=== PATIENT | female | born 1990 | race Caucasian/White ===

== ENCOUNTER 2018-02-04 09:16 | Emergency (ER) | payer SELFPAY ==
[2018-02-04] MEDS ORDERED: DEXAMETHASONE 10 MG/ML VIAL ONE (10:32)
[2018-02-04] MEDS ORDERED: MEPERIDINE HCL 25 MG/0.5 ML ONE (10:32)
[2018-02-04] MEDS ORDERED: KETOROLAC 30 MG/ML INJ ONE (10:32)
--- NOTE | 2018-02-04 11:20 | RAD REPORT ---
EXAM DESCRIPTION: RAD - Lumbar Spine 3 Views - 02/04/2018 11:11 am CLINICAL HISTORY: Back pain and bilateral lower extremity radiculopathy COMPARISON: None. FINDINGS: A three-view lumbar spine examination was performed. Lumbar bodies are normal in height an d normal in AP alignment. There is a very minimal left convex curvature to the lumbar spine. SI joint s are normal. No fracture or acute bony process seen. No disc space narrowing. No pars defects identi fied. IMPRESSION: Minimal left convex curvature of the lumbar spine. No other significant findings. Concerns for disc herniation, central canal abnormality or occult bone process can be addressed with MR imaging.
--- NOTE | 2018-02-04 11:25 | ER ---
Nurse's Notes [facility] Name: Estelle Luque Age: 28 yrs Sex: Female : 1990 Arrival Date: 02/04/2018 Time: 09:18 Bed 9 Private MD: Diagnosis: Low back pain;Strain of muscle, fascia and tendon of lower back Presentation: 02/04 09:40 Presenting complaint: Patient states: hx of back pain, yesterday, i noticed my back is hj really hurting; denies trauma to the area; denies hx of kidney stones; reports numbness and tingling on legs and toes; pain is 10/10;. Transition of care: patient was not received from another setting of care. Onset of symptoms was February 04, 2018. Risk Assessment: Do you want to hurt yourself or someone else? Patient reports no desire to harm self or others. Initial Sepsis Screen: Does the patient meet any 2 criteria? No. Patient's initial sepsis screen is negative. Does the patient have a suspected source of infection? No. Patient's initial sepsis screen is negative. Care prior to arrival: None. 09:40 Method Of Arrival: Ambulatory 09:40 Acuity: SANDI 4 hj Triage Assessment: :44 General: Appears in no apparent distress. uncomfortable, Behavior is calm, cooperative, hj appropriate for age. Pain: Complains of pain in lumbar area, left low back and right low back. Musculoskeletal: Range of motion: intact in all extremities. 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 - Social history:: Smoking status: Patient uses tobacco products, Patient/guardian denies using alcohol. - Ebola Screening: : Patient negative for fever greater than or equal to 101.5 degrees Fahrenheit, and additional compatible Ebola Virus Disease symptoms Patient denies exposure to infectious person Patient denies travel to an Ebola-affected area in the 21 days before illness onset. - Family history:: not pertinent. - Hospitalizations: : No recent hospitalization is reported. Screenin:44 Abuse screen: Denies threats or abuse. Denies injuries from another. Nutritional hj screening: No deficits noted. Tuberculosis screening: No symptoms or risk factors identified. Fall Risk None identified. Assessment: 09:54 General: Appears uncomfortable, Behavior is calm, cooperative. Pain: Complains of pain iw in right low back and left low back and lumbar area Pain radiates to right leg Pain currently is 10 out of 10 on a pain scale. Neuro: Level of Consciousness is awake, alert, obeys commands, Oriented to person, place, time, situation. Cardiovascular: Patient's skin is warm and dry. Respiratory: Respiratory effort is even, unlabored, Respiratory pattern is regular. Derm: Skin is intact, is healthy with good turgor. Musculoskeletal: Range of motion: intact in all extremities, Reports pain in right low back and left low back and lumbar area. Vital Signs: 09:44 BP 90 / 70; Pulse 86; Resp 18; Temp 99.1(TE); Pulse Ox 100% on R/A; Weight 86.18 kg; hj Height 5 ft. 4 in. (162.56 cm); Pain 10/10; 10:04 BP 125 / 78; Pulse 78; Resp 16; Temp 98.2(O); Pulse Ox 98% on R/A; Pain 10/10; iw 09:44 Body Mass Index 32.61 (86.18 kg, 162.56 cm) ED Course: 09:18 Patient arrived in ED. as 09:41 Triage completed. hj 09:44 Arm band placed on left wrist. hj 09:46 Patient has correct armband on for positive identification. Bed in low position. Call light in reach. Side rails up X 1. 09:54 Robert Rocha MD is Attending Physician. rn 09:54 Jessi Freeman, KISHOR is Primary Nurse. iw 11:10 X-ray completed. Portable x-ray completed in exam room. Patient tolerated procedure ls3 well. 11:12 XRAY Lumbar Spine (3 Views) In Process Unspecified. EDMS 11:39 No provider procedures requiring assistance completed. Patient did not have IV access iw during this emergency room visit. Administered Medications: 10:34 Drug: TORadol 30 mg Route: IVP; Site: right antecubital; iw 11:00 Follow up: Response: No adverse reaction; Pain is decreased iw 10:35 Drug: Decadron - Dexamethasone 10 mg Route: IVP; Site: right antecubital; iw 11:05 Follow up: Response: No adverse reaction; Pain is decreased iw 10:40 Drug: Demerol 25 mg Route: IVP; Site: right antecubital; iw 11:10 Follow up: Response: No adverse reaction; Pain is decreased iw Outcome: 11:24 Discharge ordered by . rn 11:39 Discharged to home via wheelchair, with family. iw 11:39 Condition: good 11:39 Discharge instructions given to patient, Instructed on discharge instructions, follow up and referral plans. medication usage, Demonstrated understanding of instructions, follow-up care, medications, Prescriptions given X 3. 11:40 Patient left the ED. iw Signatures: Dispatcher [employer] EDMS Destiny Ochoa Irene, RN RN Robert Rocha MD MD rn Joaquin, Henry, RN RN Isi Edwards ls3 Corrections: (The following items were deleted from the chart) 09:48 09:44 Pulse 86bpm; Resp 18bpm; Pulse Ox 100% RA; Temp 99.1F Temporal; 86.18 kg; Height hj 5 ft. 4 in.; BMI: 32.6; Pain 10/10; hj 10:05 10:04 BP 125 / 78; Pulse 78bpm; Resp 16bpm; Temp 98.2F Oral; iw iw
--- NOTE | 2018-02-04 11:25 | EDPHYS ---
Physician Documentation [facility] Name: Estelle Luque Age: 28 yrs Sex: Female : 1990 Arrival Date: 02/04/2018 Time: 09:18 Bed 9 Private MD: ED Physician Robert Rocha HPI: 02/04 10:04 This 28 yrs old Female presents to ER via Ambulatory with complaints of Back rn Pain. 10:04 The patient presents with pain that is chronic. The symptoms are located in the low rn back. Onset: The symptoms/episode began/occurred 1 week(s) ago. The pain radiates to the right leg and left leg. Modifying factors: The patient symptoms are alleviated by remaining still, the patient symptoms are aggravated by any movement. Severity of symptoms: At their worst the symptoms were moderate, in the emergency department the symptoms are unchanged. The patient has experienced similar episodes in the past, chronically. Reports low back pain, began again about 1 week ago, no trauma, reports lifted nephew, slowly worsening back pain, radiates down legs, no weakness, no bowel/bladder problems. Reports chronic back pain for years without etiology, denies drug use or trauma. . 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 - Social history:: Smoking status: Patient uses tobacco products, Patient/guardian denies using alcohol. - Ebola Screening: : Patient negative for fever greater than or equal to 101.5 degrees Fahrenheit, and additional compatible Ebola Virus Disease symptoms Patient denies exposure to infectious person Patient denies travel to an Ebola-affected area in the 21 days before illness onset. - Family history:: not pertinent. - Hospitalizations: : No recent hospitalization is reported. ROS: 10:04 Constitutional: Negative for fever, chills, and weight loss, Eyes: Negative for injury, rn pain, redness, and discharge, Neck: Negative for injury, pain, and swelling, Cardiovascular: Negative for chest pain, palpitations, and edema, Respiratory: Negative for shortness of breath, cough, wheezing, and pleuritic chest pain, Abdomen/GI: Negative for abdominal pain, nausea, vomiting, diarrhea, and constipation, Back: + low back pain : Negative for injury, bleeding, discharge, and swelling, MS/Extremity: Negative for injury and deformity, Skin: Negative for injury, rash, and discoloration, Neuro: Negative for headache, weakness, numbness, tingling, and seizure. Exam: 10:04 Constitutional: Overweight female, sitting in bed, using cell phone. Head/Face: rn Normocephalic, atraumatic. Eyes: Pupils equal round and reactive to light, extra-ocular motions intact. Lids and lashes normal. Conjunctiva and sclera are non-icteric and not injected. Cornea within normal limits. Periorbital areas with no swelling, redness, or edema. Abdomen/GI: soft, non-tender Back: No spinal tenderness. No costovertebral tenderness. Painful ROM, but able to sit/lay/rotate on own. Skin: Warm, dry, no evidence of cellulitis. MS/ Extremity: Pulses equal, no cyanosis. Neurovascular intact. Equal circumference. Neuro: Awake and alert, GCS 15, oriented to person, place, time, and situation. Motor strength 5/5 in all extremities. Sensory grossly intact. Cerebellar exam normal. Vital Signs: 09:44 BP 90 / 70; Pulse 86; Resp 18; Temp 99.1(TE); Pulse Ox 100% on R/A; Weight 86.18 kg; hj Height 5 ft. 4 in. (162.56 cm); Pain 10/10; 10:04 BP 125 / 78; Pulse 78; Resp 16; Temp 98.2(O); Pulse Ox 98% on R/A; Pain 10/10; iw 09:44 Body Mass Index 32.61 (86.18 kg, 162.56 cm) hj MDM: 09:54 Patient medically screened. rn 11:21 Differential diagnosis: arthritis, chronic back pain, Osteoarthritis sprain, UTI, rn strain. Data reviewed: vital signs, nurses notes, lab test result(s), radiologic studies, plain films, and as a result, I will discharge patient. Counseling: I had a detailed discussion with the patient and/or guardian regarding: the historical points, exam findings, and any diagnostic results supporting the discharge/admit diagnosis, lab results, radiology results, the need for outpatient follow up, to return to the emergency department if symptoms worsen or persist or if there are any questions or concerns that arise at home. Response to treatment: the patient's symptoms have mildly improved after treatment, and as a result, I will discharge patient. Special discussion: I discussed with the patient/guardian in detail that at this point there is no indication for admission to the hospital. It is understood, however, that if the symptoms persist or worsen the patient needs to return immediately for re-evaluation. ED course: Pt improved, xray without obvious acute findings, 1+ leukocytes but no urinary symptoms, repeat temp is normal, initial one taken bundled up.. 02/04 10:31 Order name: Urine Dipstick--Ancillary (enter results) eb 02/04 10:31 Order name: Urine --Ancillary (enter results) eb 02/04 10:03 Order name: XRAY Lumbar Spine (3 Views); Complete Time: 11:21 rn 02/04 10:03 Order name: Urine Dipstick-Ancillary (obtain specimen); Complete Time: 10:39 rn 02/04 10:03 Order name: Urine Test (obtain specimen); Complete Time: 10:39 rn 02/04 10:03 Order name: IV Start; Complete Time: 10:39 rn Administered Medications: 10:34 Drug: TORadol 30 mg Route: IVP; Site: right antecubital; iw 11:00 Follow up: Response: No adverse reaction; Pain is decreased iw 10:35 Drug: Decadron - Dexamethasone 10 mg Route: IVP; Site: right antecubital; iw 11:05 Follow up: Response: No adverse reaction; Pain is decreased iw 10:40 Drug: Demerol 25 mg Route: IVP; Site: right antecubital; iw 11:10 Follow up: Response: No adverse reaction; Pain is decreased iw Disposition: 02/04/18 11:24 Discharged to Home. Impression: Low back pain, Strain of muscle, fascia and tendon of lower back. - Condition is Stable. - Discharge Instructions: Back Pain, Adult, Muscle Strain. - Prescriptions for Tylenol- Codeine #3 300-30 mg Oral Tablet - take 1 tablet by ORAL route every 6 hours As needed; 15 tablet. Cyclobenzaprine 10 mg Oral Tablet - take 1 tablet by ORAL route every 8 hours As needed; 15 tablet. Medrol ([place]) 4 mg Oral Tablets, Dose Pack - take 1 tablet by ORAL route as directed - follow package instructions; 1 packet. - Work release form, Medication Reconciliation Form, Thank You Letter, Antibiotic Education, Prescription Opioid Use form. - Follow up: Private Physician; When: As needed; Reason: Recheck today's complaints, Re-evaluation by your physician. - Problem is new. - Symptoms have improved. Signatures: Dispatcher [employer] EDMS Jessi Freeman RN RN iw Nieto, Roman, MD MD rn Joaquin, Henry, RN RN Corrections: (The following items were deleted from the chart) 11:40 11:24 02/04/2018 11:24 Discharged to Home. Impression: Low back pain; Strain of muscle, iw fascia and tendon of lower back. Condition is Stable. Forms are Medication Reconciliation Form, Thank You Letter, Antibiotic Education, Prescription Opioid Use. Follow up: Private Physician; When: As needed; Reason: Recheck today's complaints, Re-evaluation by your physician. Problem is new. Symptoms have improved. rn
[2018-02-04 12:03] VITALS: BP 125/78; TEMP 98.2; O2SAT 98
[2018-02-04 17:14] LABS: Urine Blood NEGATIVE (NEG); Urine Glucose NEGATIVE (NEG); Urine Protein NEGATIVE (NEG); Urine Specific Gravity 1.015 (1.005-1.030)
== END 2018-02-04 11:40 | disposition home or self-care (01) ==
LOC: ER 09:16
DX: S39.012A Strain of muscle, fascia and tendon of lower back, initial encounter (principal); F41.9 Anxiety disorder, unspecified; F32.9 Major depressive disorder, single episode, unspecified; Z72.0 Tobacco use; Z88.8 Allergy status to other drugs, medicaments and biological substances
CPT/HCPCS: 72100; 81003; 81025; 96374; 96375; 99283; J1100; J2175

== ENCOUNTER 2018-04-19 08:30 | Emergency (ER) | payer SELFPAY ==
--- NOTE | 2018-04-19 09:21 | ER ---
Nurse's Notes [facility] Name: Estelle Luque Age: 28 yrs Sex: Female : 1990 Arrival Date: 04/19/2018 Time: 08:32 Bed 16 Private MD: Diagnosis: Influenza due to identified novel influenza A virus Presentation: 04/19 08:43 Presenting complaint: Patient states: headache, body aches, sore throat and fever (TMAX ss 102.0). Transition of care: patient was not received from another setting of care. Onset of symptoms is unknown. Risk Assessment: Do you want to hurt yourself or someone else? Patient reports no desire to harm self or others. Initial Sepsis Screen: Does the patient meet any 2 criteria? No. Patient's initial sepsis screen is negative. Does the patient have a suspected source of infection? No. Patient's initial sepsis screen is negative. Care prior to arrival: None. 08:43 Method Of Arrival: Ambulatory ss 08:43 Acuity: SANDI 4 ss Historical: - Allergies: 08:44 Ceclor; ss - Home Meds: 08:44 hydroxyzine HCl 25 mg Oral tab 1 tab 4 times per day [Active]; duloxetine 40 mg Oral ss cpDR 1 cap once daily [Active]; - PMHx: 08:44 Anxiety; Depression; ss - PSHx: 08:44 Appendectomy; ss - Immunization history:: Adult Immunizations up to date. - Social history:: Smoking status: Patient uses tobacco products, smokes one-half pack cigarettes per day. - Ebola Screening: : Patient denies exposure to infectious person Patient denies travel to an Ebola-affected area in the 21 days before illness onset. Screenin:55 Abuse screen: Denies threats or abuse. Nutritional screening: No deficits noted. em Tuberculosis screening: No symptoms or risk factors identified. Fall Risk None identified. Assessment: 08:55 General: Appears in no apparent distress. uncomfortable, Behavior is calm, cooperative, em Reports fever for 1-2 days. Pain: Complains of pain in throat Pain currently is 4 out of 10 on a pain scale. Pain began 2-3 days ago. Aggravated by eating, drinking. Neuro: Level of Consciousness is awake, alert, obeys commands, Oriented to person, place, time, situation. Cardiovascular: Patient's skin is warm and dry. Respiratory: Airway is patent Respiratory effort is even, unlabored, Respiratory pattern is regular, symmetrical, Breath sounds are clear bilaterally. GI: Patient currently denies nausea, vomiting. EENT: Oral mucosa is moist. Throat is reddened bilaterally. Derm: Skin is intact, is healthy with good turgor, Skin is pink, warm \T\ dry. Musculoskeletal: Range of motion: intact in all extremities. 09:32 Reassessment: Patient appears in no apparent distress at this time. No changes from sv previously documented assessment. Patient and/or family updated on plan of care and expected duration. Pain level reassessed. Patient is alert, oriented x 3, equal unlabored respirations, skin warm/dry/pink. I agree with the above assessment. Vital Signs: 08:44 BP 127 / 84; Pulse 95; Resp 16; Pulse Ox 98% on R/A; Weight 90.72 kg; Pain 4/10; ss 09:04 Temp 99.7(O); ss ED Course: 08:32 Patient arrived in ED. as 08:36 Jermain Villar MD is Attending Physician. kdr 08:43 Triage completed. ss 08:44 Arm band placed on right wrist. ss 08:55 Patient has correct armband on for positive identification. Placed in gown. Bed in low em position. Call light in reach. Side rails up X2. Pulse ox on. NIBP on. 09:12 Strep Sent. sv 09:12 Flu Sent. sv 09:13 Lorenzo Rudolph LVN is Primary Nurse. em 09:32 No provider procedures requiring assistance completed. Patient did not have IV access sv during this emergency room visit. Administered Medications: No medications were administered Outcome: 09:21 Discharge ordered by . kdr 09:32 Discharged to home ambulatory. sv 09:32 Condition: stable 09:32 Discharge instructions given to patient, Instructed on discharge instructions, follow up and referral plans. medication usage, increase oral fluids Demonstrated understanding of instructions, follow-up care, medications, Prescriptions given X 3. 09:33 Patient left the ED. sv Signatures: Ana Maldonado, RN RN Jermain Villar MD MD kdr Munoz, Edgar, LVN LVN em Destiny Ochoa Shelby, RN RN
--- NOTE | 2018-04-19 09:21 | EDPHYS ---
Physician Documentation [facility] Name: Estelle Luque Age: 28 yrs Sex: Female : 1990 Arrival Date: 04/19/2018 Time: 08:32 Bed 16 Private MD: ED Physician Jermain Villar HPI: 04/19 09:22 This 28 yrs old Female presents to ER via Ambulatory with complaints of Flu kdr Symptoms. 09:22 Has been feeling poorly for the last three to five days. Severity of symptoms: At their kdr worst the symptoms were mild moderate just prior to arrival, in the emergency department the symptoms are unchanged. The patient has not experienced similar symptoms in the past. The patient has not recently seen a physician. Historical: - Allergies: 08:44 Ceclor; ss - Home Meds: 08:44 hydroxyzine HCl 25 mg Oral tab 1 tab 4 times per day [Active]; duloxetine 40 mg Oral ss cpDR 1 cap once daily [Active]; - PMHx: 08:44 Anxiety; Depression; ss - PSHx: 08:44 Appendectomy; ss - Immunization history:: Adult Immunizations up to date. - Social history:: Smoking status: Patient uses tobacco products, smokes one-half pack cigarettes per day. - Ebola Screening: : Patient denies exposure to infectious person Patient denies travel to an Ebola-affected area in the 21 days before illness onset. ROS: 09:22 Constitutional: Negative for fever, chills, and weight loss. kdr Vital Signs: 08:44 BP 127 / 84; Pulse 95; Resp 16; Pulse Ox 98% on R/A; Weight 90.72 kg; Pain 4/10; ss 09:04 Temp 99.7(O); ss MDM: 09:21 Patient medically screened. kdr 04/19 08:35 Order name: Flu 04/19 08:39 Order name: Strep ms 04/19 09:04 Order name: Influenza Screen (A ; Complete Time: 09:19 EDMS 04/19 09:04 Order name: Group A Streptococcus Rapid Sc; Complete Time: 09:19 EDMS Administered Medications: No medications were administered Disposition: 04/19/18 09:21 Discharged to Home. Impression: Influenza due to identified novel influenza A virus. - Condition is Stable. - Discharge Instructions: Influenza, Adult, [id number]. - Prescriptions for Tamiflu 75 mg Oral Capsule - take 1 tablet by ORAL route every 12 hours for 5 days; 10 tablet. Mucinex DM 30- 600 mg Oral tablet extended release 12 hr - take 1 tablet by ORAL route every 12 hours as needed; 30 tablet. Tessalon Perles 100 mg Oral Capsule - take 1 capsule by ORAL route every 8 hours As needed; 15 capsule. - Work release form, Medication Reconciliation Form, Thank You Letter, Antibiotic Education, Prescription Opioid Use form. - Follow up: Private Physician; When: 2 - 3 days; Reason: If symptoms return, Further diagnostic work-up, Recheck today's complaints, Continuance of care, Re-evaluation by your physician. - Problem is new. - Symptoms are unchanged. Signatures: Dispatcher [employer] Ana Madrid RN RN Jermain Perkins MD MD [facility] Estelle Goins RN RN ss Corrections: (The following items were deleted from the chart) 09:33 09:21 04/19/2018 09:21 Discharged to Home. Impression: Influenza due to identified sv novel influenza A virus. Condition is Stable. Forms are Medication Reconciliation Form, Thank You Letter, Antibiotic Education, Prescription Opioid Use. Follow up: Private Physician; When: 2 - 3 days; Reason: If symptoms return, Further diagnostic work-up, Recheck today's complaints, Continuance of care, Re-evaluation by your physician. Problem is new. Symptoms are unchanged. kdr
[2018-04-19 09:55] VITALS: BP 127/84; O2SAT 98
[2018-04-19 09:56] VITALS: TEMP 99.7
== END 2018-04-19 09:33 | disposition home or self-care (01) ==
LOC: ER 08:30
DX: J10.1 Influenza due to other identified influenza virus with other respiratory manifestations (principal); F32.9 Major depressive disorder, single episode, unspecified; F41.9 Anxiety disorder, unspecified; F17.210 Nicotine dependence, cigarettes, uncomplicated; Z88.8 Allergy status to other drugs, medicaments and biological substances
CPT/HCPCS: 87070; 87081; 87804; 99283

== ENCOUNTER 2020-01-10 15:51 | Emergency (ER) | payer OTHER, SELFPAY ==
--- OUTSIDE RECORDS SUMMARY | 2020-01-10 15:53 | XMS REPORT | Continuity of Care Document ---
:1990 Author Organization [facility] t Address [address] [place] [address] Care Team Providers Name Role Phone Harley Whitmore Attending Clinician Александр Hurt Attending Clinician Doctor Unassigned, Name Attending Clinician Unavailable Problems This patient has no known problems. Allergies, Adverse Reactions, Alerts This patient has no known allergies or adverse reactions. Medications This patient has no known medications. Procedures This patient has no known procedures. 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 INSPECTOR [id number] REGIONAL [id number] MATERNAL [id number] & CHILD 107 [facility] 2019-12-09 2019-12-09 Initial AARON Freeman [id number] 09:48:57 10:45:54 Sandra N PILOT SAFETY INSPECTOR [id number] Visit REGIONAL [id number] MATERNAL [id number] & CHILD 107 [facility] 2019-12-09 2019-12-09 Orders Doctor CHAVEZ [id number] 00:00:00 00:00:00 Only UnassignedFAROOQ [id number] [place] [id number] 2019-09-24 2019-09-26 Office Tobi [facility] [id number] 08:30:55 10:19:56 Visit Pippa Souza PILOT SAFETY INSPECTOR [id number] [facility] [id number] MATERNAL [id number] & CHILD [address] [place] [address] - [place] Results This patient has no known results.
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
--- OUTSIDE RECORDS SUMMARY | 2020-01-10 15:54 | XMS REPORT | Summary of Care ---
:1990 Author Organization [facility] Address [address] [place] [id number] Care Team Providers Name Role Phone Harley Britton Primary Care Provider Reason for Referral (Routine) Status Reason Specialty Diagnoses / Referred By Referred To Procedures Contact Contact New Request Maternal Diagnoses High-risk in first trimester Sandra Freeman Medicine Procedures CONSULT MATERNAL MEDICINE ULTRASOUND Preferred Location: [facility] [address] [place] [address] Reason for Visit Reason Comments Orders ultrasound Encounter Details Date Type Department Care Team Description 12/10/2019 Telephone [facility] P[facility]a Britton Or ders (ultrasound ) [facility] [address] [facility] [address] [place], [place] [id number] [place] [phone] Allergies Active Allergy Reactions Severity Noted Date Comments Cefaclor Unknown - See comments 10/06/2012 documented as of this encounter (statuses as of 12/11/2019) Medications Medication Sig Dispensed Refills Start Date End Date Status PNV 67-iron Take 1 30 capsule 11 12/10/2019 Active ps-folate no.1-dha capsule by (VITAFOL ULTRA) 29 mouth daily. mg iron- 1 mg-200 mg CapIndications: High-risk in first trimester multivitamin (DAILY Take by 0 12/10/2019 Discontinued VITAMIN ORAL) mouth. 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 Utility Class 1 obesity with body mass index (BMI) of 30.0 to 30.9 i n 01/05/2014 12/09/2019 adult, unspecified obesity type, unspecified whether serious comorbidity present Overview: ICD10 Diagnosis Term Account Clerk Utility Need for HPV vaccination 01/05/2014 12/09/2019 Screen for STD (sexually transmitted disease) 01/05/2014 12/09/2019 Dysmenorrhea 01/05/2014 12/09/2019 documented as of this encounter (statuses as of 12/11/2019) Immunizations Name Administration Dates Next Due HPV [...] Signs Not on filedocumented in this encounter Miscellaneous Notes Telephone Encounter - Daniel Sykes RN - 12/11/2019 7:59 AM CDTCalled patient, notified of usg and pnv ordered. DANIEL SYKES RN 12/11/2019 7:59 AM Telephone Encounter - Sandra Freeman FNP - 12/10/2019 3:02 PM CDT US and vitamins ordered elephone Encounter - Reena Ga - 12/10/2019 9:31 AM CDTShelkristi Sahara Luque is a 29 year old female is calling to advise that she got notification of Medicaid being approved and was told to call once done for ultrasound. Please return call. Thank you. 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 Routine Visit [facility] Sandra Freeman FNP [address] [place], [place] [address] [phone] Health Maintenance Due Date Last Done Comments PAP SMEAR 01/13/2020 01/12/2017, 01/05/2014 DTaP,Tdap,and Td Vaccines (2 - Td) 03/29/2020 03/29/2010 Depression Screening 09/17/2020 09/18/2019 INFLUENZA VACCINE Completed 12/09/2019 PNEUMOCOCCAL 0-64 YEARS COMBINED SERIES Discontinued documented as of this encounter Results Not on filedocumented in this encounter Visit Diagnoses Diagnosis High-risk in first trimester - Primary documented in this encounter Insurance Payer Benefit Plan Subscriber ID Effective Phone Address Typ e / Group Dates MEDICAID MEDICAID PENDING 2019-Pr [address] [facility] ending [place] [address] [id number] 2016-Pre [phone] [address] Medicaid WOMEN sent [address] [place] [address] documented as of this encounter Advance Directives Name Relationship Healthcare Agent Relationship Co mmunication Lilli [facility] Health Care Agent [phone] ( Mobile)
[2020-01-10] MEDS ORDERED: DICYCLOMINE HCL 20 MG/2 ML AMP IM ONE (18:33)
[2020-01-10] MEDS ORDERED: ONDANSETRON 4 MG/2 ML VIAL ONE (18:33)
[2020-01-10] MEDS ORDERED: NA CHLORIDE 0.9% 1,000 ML ONE (18:34)
[2020-01-10 18:50] LABS: Urine Blood 2+ (NEG); Urine Glucose NEGATIVE (NEG); Urine Protein NEGATIVE (NEG)
[2020-01-10 19:00] LABS: Absolute Lymphocytes (CBC) 2.2 K/uL (0.7-4.9); Basophils % 0.5 % (0-1.3); Hematocrit 40.4 % (36.0-45.0); Lymphocytes % 19.6 % (15.3-44.8); RBC Red Blood Cell Count 4.37 M/uL (3.86-4.86)
[2020-01-10 19:27] LABS: BUN Blood Urea Nitrogen 12 mg/dL (7-18); Bicarbonate 28 mmol/L (21-32); Glucose Level 76 mg/dL (74-106); HCG, Quantitative 83441 mIU/mL (1-3); Sodium Level 139 mmol/L (136-145)
[2020-01-10 20:17] LABS: Urine Amorphous Sediment 1+ /HPF (NONE SEEN); Urine Bacteria 20-50 /HPF (<20); Urine Culture Reflex Order REFLEXED; Urine Mucus 1+ /HPF (NONE SEEN)
[2020-01-10 20:18] LABS: Urine Trichomonas PRESENT (NONE SEEN)
--- NOTE | 2020-01-10 20:46 | EDPHYS ---
Physician Documentation [facility] Name: Estelle Luque Age: 29 yrs Sex: Female : 1990 Arrival Date: 01/10/2020 Time: 15:53 Bed 8 Private MD: ED Physician Robert Rocha HPI: 01/09 18:00 This 29 yrs old Female presents to ER via Ambulatory with complaints of cp Pelvic Pain - unk wks preg. 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 - Social history:: Smoking status: Reported history of juuling and/or vaping. ROS: 18:05 Abdomen/GI: Positive for abdominal cramps, Negative for vomiting, diarrhea, cp constipation. 18:05 Eyes: Negative for injury, pain, redness, and discharge. cp 18:05 Constitutional: Negative for chills, fever, poor PO intake. 18:05 ENT: Negative for ear pain, sore throat, difficulty swallowing, difficulty handling secretions. 18:05 Respiratory: Negative for cough, shortness of breath, wheezing. 18:05 Neuro: Negative for altered mental status, dizziness, headache, weakness. 18:05 All other systems are negative. Exam: 18:12 Constitutional: The patient appears in no acute distress, alert, awake, non-toxic, well cp developed, well nourished. 18:12 Head/Face: Normocephalic, atraumatic. cp 18:12 Eyes: Periorbital structures: appear normal, Conjunctiva: normal, no exudate, no injection, Sclera: no appreciated abnormality, Lids and lashes: appear normal, bilaterally. 18:12 ENT: External ear(s): are unremarkable, Nose: is normal, Posterior pharynx: Airway: no evidence of obstruction, patent. 18:12 Chest/axilla: Inspection: normal, Palpation: is normal, no crepitus, no tenderness. 18:12 Cardiovascular: Rate: normal, Rhythm: regular. 18:12 Respiratory: the patient does not display signs of respiratory distress, Respirations: normal, no use of accessory muscles, no retractions, labored breathing, is not present, Breath sounds: are clear throughout, no decreased breath sounds. 18:12 Abdomen/GI: Inspection: abdomen appears normal, Bowel sounds: active, all quadrants, Palpation: soft, in all quadrants, mild abdominal tenderness, in the right lower quadrant and left lower quadrant, rebound tenderness, is not appreciated, voluntary guarding, is not appreciated, involuntary guarding, is not appreciated. 18:12 Back: CVA tenderness, is absent. Vital Signs: 16:46 BP 118 / 71; Pulse 74; Resp 19 S; Temp 98.0(TE); Pulse Ox 100% on R/A; Weight 90.72 kg jd3 (R); Height 5 ft. 4 in. (162.56 cm) (R); Pain 4/10; 18:45 BP 101 / 65; Pulse 56; Resp 16; Pulse Ox 100% ; bp 19:43 BP 93 / 53; Pulse 60; Resp 18; Pulse Ox 100% on R/A; mg2 20:49 BP 115 / 70; Pulse 60; Resp 18; Pulse Ox 99% ; ea 16:46 Body Mass Index 34.33 (90.72 kg, 162.56 cm) jd3 MDM: 17:48 Patient medically screened. 20:44 Data reviewed: vital signs, nurses notes, lab test result(s), radiologic studies, cp ultrasound, and as a result, I will discharge patient. 20:44 Counseling: I had a detailed discussion with the patient and/or guardian regarding: the cp historical points, exam findings, and any diagnostic results supporting the discharge/admit diagnosis, lab results, radiology results, the need for outpatient follow up, an OB/Gyne specialist, to return to the emergency department if symptoms worsen or persist or if there are any questions or concerns that arise at home. Response to treatment: the patient's symptoms have markedly improved after treatment, and as a result, I will discharge patient. 01/09 17:55 Order name: Quantitative Hcg; Complete Time: 19:29 01/09 19:29 Interpretation: HCGQ 64822; Reviewed. 01/09 17:55 Order name: Abo/rh Typing; Complete Time: 19:29 01/09 17:55 Order name: Basic Metabolic Panel; Complete Time: 19:29 cp 01/09 17:55 Order name: CBC with Diff; Complete Time: 19:29 cp 01/09 19:29 Interpretation: Normal except: WBC 11.0. cp 01/09 18:45 Order name: Urine --Ancillary (enter results); Complete Time: 19:29 tt3 01/09 18:47 Order name: Urine Dipstick--Ancillary (enter results); Complete Time: 19:29 tt3 01/09 17:55 Order name: Urine Test (obtain specimen); Complete Time: 19:05 cp 01/09 17:55 Order name: US Transvaginal Ob 01/09 19:30 Order name: Urine Microscopic Only; Complete Time: 20:37 cp 01/09 20:18 Order name: Urine Culture EDNJ 01/09 17:55 Order name: IV Saline Lock; Complete Time: 19:05 cp 01/09 17:55 Order name: Labs collected and sent; Complete Time: 19:05 cp 01/09 17:55 Order name: NPO; Complete Time: 18:01 cp 01/09 17:55 Order name: Urine Dipstick-Ancillary (obtain specimen); Complete Time: 19:12 cp Administered Medications: 18:30 Drug: NS 0.9% 1000 ml Route: IV; Rate: 1 bolus; Site: right forearm; bp 18:30 Drug: Bentyl 20 mg Route: IM; Site: right gluteus; bp 20:20 Follow up: Response: No adverse reaction mg2 18:30 Drug: Zofran (Ondansetron) 4 mg Route: IVP; Site: right forearm; bp 20:20 Follow up: Response: No adverse reaction mg2 20:48 Drug: metroNIDAZOLE 2 grams Route: PO; ea 20:57 Follow up: Response: No adverse reaction mg2 Disposition: 01/10 07:05 Co-signature as Attending Physician, Robert Rocha MD. rn Disposition: 01/10/20 20:45 Discharged to Home. Impression: Threatened , related conditions, unspecified, first trimester, Trichomoniasis, unspecified. - Condition is Stable. - Discharge Instructions: Abdominal Pain During , Threatened Miscarriage, Trichomoniasis, Vaginal Bleeding During , First Trimester, Pelvic Rest. - Prescriptions for Macrobid 100 mg Oral Capsule - take 1 capsule by ORAL route every 12 hours for 7 days; 14 capsule. - Medication Reconciliation Form, Thank You Letter, Antibiotic Education, Prescription Opioid Use, Work release form form. - Follow up: Private Physician; When: 1 week; Reason: Recheck today's complaints. - Problem is new. - Symptoms have improved. Signatures: Dispatcher [employer] EDMS Robert Rocha MD MD rn Page, Corey, PA PA cp Antunez, Elena, RN RN ea Davies, Jonathon, RN RN jSancho Godinez RN RN bp Gardose, Michele RN RN mg2 Corrections: (The following items were deleted from the chart) 01/09 20:57 20:45 01/10/2020 20:45 Discharged to Home. Impression: Threatened ; mg2 related conditions, unspecified, first trimester; Trichomoniasis, unspecified. Condition is Stable. Forms are Medication Reconciliation Form, Thank You Letter, Antibiotic Education, Prescription Opioid Use. Follow up: Private Physician; When: 1 week; Reason: Recheck today's complaints. Problem is new. Symptoms have improved. cp
--- NOTE | 2020-01-10 20:46 | ER ---
Nurse's Notes [facility] Name: Estelle Luque Age: 29 yrs Sex: Female : 1990 Arrival Date: 01/10/2020 Time: 15:53 Bed 8 Private MD: Diagnosis: Threatened ; related conditions, unspecified, first trimester;Trichomoniasis, unspecified Presentation: 01/09 16:44 Chief complaint: Patient states: "I am currently and I started bleeding this jd3 morning. since then the bleeding has stopped, but I am cramping really bad now.". Coronavirus screen: At this time, the client does not indicate any symptoms associated with coronavirus-19. Ebola Screen: Patient negative for fever greater than or equal to 101.5 degrees Fahrenheit, and additional compatible Ebola Virus Disease symptoms. Initial Sepsis Screen: Does the patient meet any 2 criteria? No. Patient's initial sepsis screen is negative. Does the patient have a suspected source of infection? No. Patient's initial sepsis screen is negative. Risk Assessment: Do you want to hurt yourself or someone else? Patient reports no desire to harm self or others. Onset of symptoms was January 10, 2020. 16:44 Method Of Arrival: Ambulatory jd3 16:44 Acuity: SANDI 3 jd3 Triage Assessment: 16:45 General: Appears in no apparent distress. uncomfortable, Behavior is cooperative, bp appropriate for age, anxious. Pain: Complains of pain in pelvis. EENT: No deficits noted. Neuro: No deficits noted. Cardiovascular: No deficits noted. Respiratory: No deficits noted. GI: No signs and/or symptoms were reported involving the gastrointestinal system. : Reports cramping. Derm: No deficits noted. Musculoskeletal: No deficits noted. 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 - Social history:: Smoking status: Reported history of juuling and/or vaping. Screenin:45 Abuse screen: Denies threats or abuse. Denies injuries from another. Nutritional bp screening: No deficits noted. Tuberculosis screening: No symptoms or risk factors identified. Fall Risk None identified. Assessment: 16:45 General: SEE TRIAGE NOTE. : Reports cramping. bp 18:45 Reassessment: Patient appears in no apparent distress at this time. No changes from bp previously documented assessment. Patient and/or family updated on plan of care and expected duration. Pain level reassessed. Patient is alert, oriented x 3, equal unlabored respirations, skin warm/dry/pink. U/S PENDING. 19:44 General: Appears in no apparent distress. comfortable, Behavior is calm, cooperative. mg2 Pain: Denies pain. Neuro: Level of Consciousness is awake, alert, obeys commands, Oriented to person, place, time, situation. 20:00 Reassessment: Patient and/or family updated on plan of care and expected duration. Pain ea level reassessed. Patient is alert, oriented x 3, equal unlabored respirations, skin warm/dry/pink. Pt taken to ultrasound. Vital Signs: 16:46 BP 118 / 71; Pulse 74; Resp 19 S; Temp 98.0(TE); Pulse Ox 100% on R/A; Weight 90.72 kg jd3 (R); Height 5 ft. 4 in. (162.56 cm) (R); Pain 4/10; 18:45 BP 101 / 65; Pulse 56; Resp 16; Pulse Ox 100% ; bp 19:43 BP 93 / 53; Pulse 60; Resp 18; Pulse Ox 100% on R/A; mg2 20:49 BP 115 / 70; Pulse 60; Resp 18; Pulse Ox 99% ; ea 16:46 Body Mass Index 34.33 (90.72 kg, 162.56 cm) jd3 ED Course: 15:53 Patient arrived in ED. as 16:45 Triage completed. jd3 16:45 Patient has correct armband on for positive identification. Placed in gown. Bed in low bp position. Call light in reach. Side rails up X2. Adult w/ patient. 16:48 Arm band placed on. jd3 17:43 Edilson Schaefer PA is PHCP. cp 17:43 Robert Rocha MD is Attending Physician. cp 17:53 Sancho Mcclure RN is Primary Nurse. bp 18:30 Inserted saline lock: 20 gauge in right forearm, using aseptic technique. Blood bp collected. 20:47 US Transvaginal Ob In Process Unspecified. EDMS 20:48 No provider procedures requiring assistance completed. IV discontinued, intact, ea bleeding controlled, No redness/swelling at site. Pressure dressing applied. Administered Medications: 18:30 Drug: NS 0.9% 1000 ml Route: IV; Rate: 1 bolus; Site: right forearm; bp 18:30 Drug: Bentyl 20 mg Route: IM; Site: right gluteus; bp 20:20 Follow up: Response: No adverse reaction mg2 18:30 Drug: Zofran (Ondansetron) 4 mg Route: IVP; Site: right forearm; bp 20:20 Follow up: Response: No adverse reaction mg2 20:48 Drug: metroNIDAZOLE 2 grams Route: PO; ea 20:57 Follow up: Response: No adverse reaction mg2 Outcome: 20:45 Discharge ordered by MD. cp 20:57 Discharged to home ambulatory, with family. mg2 20:57 Condition: stable 20:57 Discharge instructions given to patient, family, Instructed on discharge instructions, follow up and referral plans. medication usage, Demonstrated understanding of instructions, follow-up care, medications, Prescriptions given X 1. 20:57 Patient left the ED. mg2 Signatures: Dispatcher [employer] EDMS Destiny Ochoa Corey, PA PA cp Yasemin Lockhart RN RN ea Davies, Jonathon, RN RN jd3 Sancho Mcclure RN RN bp Gardose, Michele, RN RN mg2 Corrections: (The following items were deleted from the chart) 16:46 16:44 Chief complaint: Patient states: "I am currently and I started bleeding jd3 this morning. since then the bleeding has stopped, but I am cramping really bad now." jd3 16:48 16:46 Pulse 74bpm; Resp 19bpm; Spontaneous; Pulse Ox 100% RA; Temp 98.0F Temporal; jd3 90.72 kg Reported; Height 5 ft. 4 in. Reported; BMI: 34.3; Pain 4/10; jd3
[2020-01-10] MEDS ORDERED: metroNIDAZOLE 500 MG TABLET ONE (20:58)
--- NOTE | 2020-01-10 21:08 | RAD REPORT ---
EXAM DESCRIPTION: US - Transvaginal OB - 01/10/2020 8:47 pm CLINICAL HISTORY: with pelvic pain COMPARISON: None. FINDINGS: The uterus measures 11 x 6 x 7 centimeters. A normal appearing gestational sac is present within the endometrium. Within this is a yolk sac and pole with a crown-rump length 2.5 centim eters. Cardiac activity 174 beats per minute 1.7 centimeter fluid collection within the lower uterine segment probably small bleed Right and left ovary appear normal. . An adnexal mass is not noted. No significant free fluid is seen. IMPRESSION: Single live intrauterine with an estimated gestational age 9 weeks 2 days MARVEL 08/12/2020
[2020-01-10 23:59] VITALS: TEMP 98
[2020-01-11 00:44] VITALS: BP 115/70; O2SAT 99
== END 2020-01-10 20:57 | disposition home or self-care (01) ==
LOC: ER 15:51
DX: O20.0 Threatened abortion (principal); A59.9 Trichomoniasis, unspecified; Z3A.09 9 weeks gestation of pregnancy; Z88.1 Allergy status to other antibiotic agents
CPT/HCPCS: 87088; 85025; 87086; 80048; 36415; 86900; 81025; 86901; 84702; 76817; 96372; 96374; 99284; J0500; J7030; J2405; 81003; 81015

== ENCOUNTER 2020-01-30 17:24 | Emergency (ER) | payer OTHER ==
--- OUTSIDE RECORDS SUMMARY | 2020-01-30 17:26 | XMS REPORT | Continuity of Care Document ---
:1990 Author Organization [facility] t Address [address] [place] [address] Care Team Providers Name Role Phone Harley Whitmore Attending Clinician Problems This patient has no known problems. Allergies, Adverse Reactions, Alerts This patient has no known allergies or adverse reactions. Medications This patient has no known medications. Procedures This patient has no known procedures. Encounters Start End Encounter Admission Attending Care Care Encounter Source Date/Time Date/Time Type Type Clinicians Facility Department ID 2020-01-14 2020-01-14 Abstract AARON Britton [id number] 00:00:00 00:00:00 Pippa Souza BANK NOTE DESIGNER [id number] REGIONAL [id number] MATERNAL [id number] & CHILD [facility] 2020-01-13 2020-01-13 Routine AARON Britton [id number] 15:18:57 15:54:42 Pippa Souza BANK NOTE DESIGNER [id number] Visit REGIONAL [id number] MATERNAL [id number] & CHILD [facility] Results This patient has no known results.
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
--- OUTSIDE RECORDS SUMMARY | 2020-01-30 17:27 | XMS REPORT | Summary of Care ---
:1990 Author Organization [facility] Address [address] [place] [address] Care Team Providers Name Role Phone Harley Britton Primary Care Provider Reason for Visit Reason Comments ULTRASOUND (Routine) Status Reason Specialty Diagnoses / Referred By Referred To Procedures Contact Contact Closed Maternal Diagnoses High-risk in first trimester Sandra Freeman Medicine Procedures CONSULT MATERNAL MEDICINE ULTRASOUND Preferred Location: TAMIR Chau [address] [place] [id number] Encounter Details Date Type Department Care Team Description 01/13/2020 Employment Service Specialist [facility] Su pervision of high risk in first trimester; Ultrasound- Blanca SIMS Uterine size-date discrepancy in first t rimester [address] [phone] Allergies Active Allergy Reactions Severity Noted Date [...] of 01/13/2020) Active Problems Problem Noted Date Carrier of [...] exam 01/05/2014 12/09/2019 Overview: ICD10 Diagnosis Term Emergency Manager Utility Class 1 obesity with body mass index (BMI) of 30.0 to 30.9 i n 01/05/2014 12/09/2019 adult, unspecified obesity type, unspecified whether serious comorbidity present Overview: ICD10 Diagnosis Term Emergency Manager Utility Need for HPV vaccination 01/05/2014 12/09/2019 [...] Treatment Date Type Specialty Care Team Description 01/13/2020 Routine Visit OB Satellites Harley Britton, FORECLOSURE HOME INSPECTOR [address] [place], [place] [address] [phone] Health Maintenance Due Date Last Done Comments PAP SMEAR 01/13/2020 01/12/2017, 01/05/2014 DTaP,Tdap,and Td Vaccines (2 - Td) 03/29/2020 03/29/2010 Depression Screening 09/17/2020 09/18/2019 INFLUENZA VACCINE Completed 12/09/2019 PNEUMOCOCCAL 0-64 YEARS COMBINED SERIES Discontinued documented as of this encounter Results Not on filedocumented in this encounter Visit Diagnoses Diagnosis Supervision of high risk in rst trimester Unspecified high-risk Uterine size-date discrepancy in first t rimester Uterine size date discrepancy, antepartu m condition or complication documented in this encounter Insurance Payer Benefit Plan / Subscriber ID Effective Dates Phone Addre ss Type Group [facility] MEDICAID OF [id number] 2019-Presen [phone] [address] Medicaid [place] t [id number] [place] [address] documented as of this encounter Advance Directives Name Relationship Healthcare Agent Relationship Co mmunication Lilli Conway Mother Health Care Agent [phone] ( Mobile)
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
--- OUTSIDE RECORDS SUMMARY | 2020-01-30 17:28 | XMS REPORT | Summary of Care ---
:1990 Author Organization [facility] Address [address] [place] [address] Care Team Providers Name Role Phone Harley Britton Primary Care Provider Encounter Details Date Type Department Care Team Description 01/14/2020 Abstract [facility]- A ngPippa Crawley, PHOTO FINISH PHOTOGRAPHER [address] [facility] [address] [place] [address] [address] [place] [address] [phone] Allergies Active Allergy Reactions Severity Noted Date Comments Cefaclor Unknown - See comments 10/06/2012 documented as of this encounter (statuses as of 01/14/2020) Medications Medication Sig Dispensed Refills Start Date End Date Status PNV 67-iron ps-folate Take 1 capsule by 30 capsule 11 0 Active no.1-dha (VITAFOL mouth daily. ULTRA) 29 mg iron- 1 mg-200 mg CapIndications: High-risk in first trimester documented as of this encounter (statuses as of 01/14/2020) Active Problems Problem Noted Date Urinary tract [...] as of this encounter (statuses as of 01/14/2020) Resolved Problems Problem Noted Date Resolved Date Encounter for other general counseling or advice on 01/13/20 17 12/09/[address] 01/05/2014 12/09/2019 Nexplanon insertion 01/05/2014 12/09/2019 Well woman exam 01/05/2014 12/09/2019 Overview: ICD10 Diagnosis Term Choreography Director Utility Class 1 obesity with body mass index (BMI) of 30.0 to 30.9 i n 01/05/2014 12/09/2019 adult, unspecified obesity type, unspecified whether serious comorbidity present Overview: ICD10 Diagnosis Term Choreography Director Utility Need for HPV vaccination 01/05/2014 12/09/2019 Screen for STD (sexually transmitted disease) 01/05/2014 12/09/2019 Dysmenorrhea 01/05/2014 12/09/2019 documented as of this encounter (statuses as of 01/14/2020) Immunizations Name Administration Dates Next Due HPV [...] with No / Unsure 01/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 documented as of this encounter Last Filed Vital Signs Not on filedocumented in this encounter Plan of Treatment Date Type Specialty Care Team Description 02/12/2020 Routine Visit OB Satellites Sandra Freeman, PHOTO FINISH PHOTOGRAPHER [address] [place], [place] [address] [phone] Health Maintenance Due Date Last Done Comments PAP SMEAR 01/13/2020 01/12/2017, 01/05/2014 DTaP,Tdap,and Td Vaccines (2 - Td) 03/29/2020 03/29/2010 Depression Screening 09/17/2020 09/18/2019 INFLUENZA VACCINE Completed 12/09/2019 PNEUMOCOCCAL 0-64 YEARS COMBINED SERIES Discontinued documented as of this encounter Results Not on filedocumented in this encounter Insurance Payer Benefit Plan Subscriber ID Effective Phone Address Typ e / Group Dates [employer] [id number] 2019-Pres [phone] dicaid [place] ent [address] [place] [address] [place] [facility] [id number] 2016-Pres [phone] Medicaid WOMEN ent [address] [place] [address] documented as of this encounter Advance Directives Name Relationship Healthcare Agent Relationship Co mmunication Lilli Conway Mother Health Care Agent [phone] ( Mobile)
[2020-01-30 18:49] LABS: Urine Blood 2+ (NEG); Urine Glucose NEGATIVE (NEG); Urine Protein NEGATIVE (NEG); Urine Specific Gravity 1.015 (1.005-1.030)
--- NOTE | 2020-01-30 19:53 | RAD REPORT ---
EXAM DESCRIPTION: US - Transvaginal OB - 01/30/2020 7:14 pm CLINICAL HISTORY: Abd pain;Vaginal bleeding COMPARISON: Transvaginal OB dated 01/10/2020 FINDINGS: A single gestational sac is seen within the uterus. The shape of the sac is within normal limits for gestational age. Within the sac is a single pole with crown-rump length of 5.7 cm, c orrelating to estimated gestational age of 12 weeks 1 day. Estimated date of delivery is 08/12/2020. Heart rate is 161. The placenta is not yet developed due to early gestational age. The maternal adnexa and left ovary are within normal limits. Normal Doppler blood flow was demonstrat ed to the left ovary. The right ovary is obscured by bowel gas. 7 mm inferior subchorionic bleed. IMPRESSION: Single live early intrauterine gestation with estimated gestational age of 12 weeks 1 da y, MARVEL 08/12/2020. 7 mm inferior subchorionic bleed.
--- NOTE | 2020-01-30 20:09 | EDPHYS ---
Physician Documentation [facility] Name: Estelle Luque Age: 30 yrs Sex: Female : 1990 Arrival Date: 01/30/2020 Time: 17:25 Bed 25 Private MD: Edilson Dalton HPI: 01/29 18:22 This 30 yrs old Female presents to ER via Ambulatory with complaints of kb Vaginal Bleeding - >Preg. 18:22 The patient presents to the emergency department with abdominal pain, vaginal bleeding, kb that is moderate, with clots. The estimated gestational age is 13 weeks. course: care: at a clinic, Leakage of Fluid: none appreciated, Ultrasound: the patient has not had an ultrasound, Risk/complications: no obvious risks or complications are appreciated. Previous pregnancies: in previous pregnancies patient has had. Associated signs and symptoms: Pertinent positives: abdominal pain, vaginal bleeding, Pertinent negatives: chest pain, diarrhea, dysuria, fever, frequency, nausea, ruptured membranes, seizure, shortness of breath, vaginal discharge, vomiting. The patient has not experienced similar symptoms in the past. The patient has not recently seen a physician. Pt reports she went to bed with back pain, but didn't think anything of it because she has that often. Today she went to the restroom and passed 3 large clots. . 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 - Social history:: Smoking status: Reported history of juuling and/or vaping. ROS: 18:24 Constitutional: Negative for fever, chills, and weight loss, Cardiovascular: Negative kb for chest pain, palpitations, and edema, Respiratory: Negative for shortness of breath, cough, wheezing, and pleuritic chest pain, Back: Negative for injury and pain, MS/Extremity: Negative for injury and deformity, Skin: Negative for injury, rash, and discoloration, Neuro: Negative for headache, weakness, numbness, tingling, and seizure. 18:24 Abdomen/GI: Positive for abdominal pain. 18:24 : Positive for vaginal bleeding. Exam: 18:25 Constitutional: This is a well developed, well nourished patient who is awake, alert, kb and in no acute distress. Head/Face: Normocephalic, atraumatic. Chest/axilla: Normal chest wall appearance and motion. Nontender with no deformity. No lesions are appreciated. Cardiovascular: Regular rate and rhythm with a normal S1 and S2. No gallops, murmurs, or rubs. Normal PMI, no JVD. No pulse deficits. Respiratory: Lungs have equal breath sounds bilaterally, clear to auscultation and percussion. No rales, rhonchi or wheezes noted. No increased work of breathing, no retractions or nasal flaring. Abdomen/GI: Soft, non-tender, with normal bowel sounds. No distension or tympany. No guarding or rebound. No evidence of tenderness throughout. Skin: Warm, dry with normal turgor. Normal color with no rashes, no lesions, and no evidence of cellulitis. MS/ Extremity: Pulses equal, no cyanosis. Neurovascular intact. Full, normal range of motion. Neuro: Awake and alert, GCS 15, oriented to person, place, time, and situation. Cranial nerves II-XII grossly intact. Motor strength 5/5 in all extremities. Sensory grossly intact. Cerebellar exam normal. Normal gait. Vital Signs: 18:18 BP 114 / 76; Pulse 90; Resp 14; Temp 99.1(TE); Pulse Ox 99% on R/A; Weight 83.91 kg; ss Height 5 ft. 4 in. (162.56 cm); Pain 4/10; 18:18 Body Mass Index 31.75 (83.91 kg, 162.56 cm) ss MDM: 18:20 Patient medically screened. kb 18:21 Data reviewed: vital signs, nurses notes. Data interpreted: Pulse oximetry: on room air kb is 99 %. Interpretation: normal. 20:08 Counseling: I had a detailed discussion with the patient and/or guardian regarding: the kb historical points, exam findings, and any diagnostic results supporting the discharge/admit diagnosis, radiology results, the need for outpatient follow up, an OB/Gyne specialist, to return to the emergency department if symptoms worsen or persist or if there are any questions or concerns that arise at home. 01/29 18:37 Order name: Urine Dipstick--Ancillary (enter results); Complete Time: 18:57 kb 01/29 18:37 Order name: Urine --Ancillary (enter results); Complete Time: 18:57 kb 01/29 17:36 Order name: Urine Dipstick-Ancillary (obtain specimen); Complete Time: 20:10 kb 01/29 17:36 Order name: Urine Test (obtain specimen); Complete Time: 20:10 kb 01/29 18:21 Order name: US Transvaginal Ob; Complete Time: 19:55 kb Administered Medications: No medications were administered Disposition: 01/30 08:26 Co-signature as Attending Physician, Edilson Craig MD I agree with the assessment and michael plan of care. Disposition: 01/30/20 20:09 Discharged to Home. Impression: 12 weeks gestation of , Threatened . - Condition is Stable. - Discharge Instructions: Vaginal Bleeding During , First Trimester, Threatened Miscarriage, [id number], Pelvic Rest. - Medication Reconciliation Form, Thank You Letter, Antibiotic Education, Prescription Opioid Use, Work release form form. - Follow up: Emergency Department; When: As needed; Reason: Worsening of condition. Follow up: Private Physician; When: 2 - 3 days; Reason: Recheck today's complaints, Continuance of care, Re-evaluation by your physician. Signatures: Dispatcher [employer] Prerna Poon, PHYSICIAN OFFICE NURSE-C PHYSICIAN OFFICE NURSE-Deep Slater, Edilson Nicole RN, MD MD cha Smirch, Shelby, RN RN ss Corrections: (The following items were deleted from the chart) 01/29 20:10 18:21 QUANTITATIVE HCG+C.LAB.BRZ ordered. EDVT EDMS 20:10 18:21 BASIC METABOLIC PANEL+C.LAB.BRZ ordered. EDVT EDMS 20:10 18:21 CBC+H.LAB.BRZ ordered. EDVT EDMS 20:14 20:09 01/30/2020 20:09 Discharged to Home. Impression: 12 weeks gestation of ; sg Threatened . Condition is Stable. Forms are Medication Reconciliation Form, Thank You Letter, Antibiotic Education, Prescription Opioid Use. Follow up: Emergency Department; When: As needed; Reason: Worsening of condition. Follow up: Private Physician; When: 2 - 3 days; Reason: Recheck today's complaints, Continuance of care, Re-evaluation by your physician. kb
--- NOTE | 2020-01-30 20:09 | ER ---
Nurse's Notes [facility] Name: Estelle Luque Age: 30 yrs Sex: Female : 1990 Arrival Date: 01/30/2020 Time: 17:25 Bed 25 Private MD: Diagnosis: 12 weeks gestation of ;Threatened Presentation: 01/29 18:18 Chief complaint: Patient states: vaginal bleeding that started today. Pt states, "I ss think I miscarried." Pt reports she is approximately 13 weeks . Coronavirus screen: Client denies travel out of the [place] in the last 14 days. Ebola Screen: Patient denies exposure to infectious person. Patient denies travel to an Ebola-affected area in the 21 days before illness onset. Initial Sepsis Screen: Does the patient meet any 2 criteria? No. Patient's initial sepsis screen is negative. Does the patient have a suspected source of infection? No. Patient's initial sepsis screen is negative. Risk Assessment: Do you want to hurt yourself or someone else? Patient reports no desire to harm self or others. Onset of symptoms was January 30, 2020. 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 - Social history:: Smoking status: Reported history of juuling and/or vaping. Vital Signs: 18:18 BP 114 / 76; Pulse 90; Resp 14; Temp 99.1(TE); Pulse Ox 99% on R/A; Weight 83.91 kg; ss Height 5 ft. 4 in. (162.56 cm); Pain 4/10; 18:18 Body Mass Index 31.75 (83.91 kg, 162.56 cm) ED Course: 17:25 Patient arrived in ED. ds1 17:45 Prerna Smith FNP-C [facility]. kb 17:45 Edilson Craig MD is Attending Physician. kb 18:20 Triage completed. ss 18:21 Arm band placed on right wrist. ss 19:15 US Transvaginal Ob In Process Unspecified. EDMS 20:08 Deep Mace, RN is Primary Nurse. sg Administered Medications: No medications were administered Outcome: 20:09 Discharge ordered by . kb 20:14 Patient left the ED. sg Signatures: Dispatcher [employer] EDCA Prerna Smith, COOKER SYRUP-C COOKER SYRUP-Ckb Deep Mace, RN RN sg Terri Sinha ds1 Estelle Goins RN RN ss
[2020-02-04 20:55] VITALS: BP 114/76; TEMP 99.1; O2SAT 99
== END 2020-01-30 20:14 | disposition home or self-care (01) ==
LOC: ER 17:24
DX: O20.0 Threatened abortion (principal); Z3A.13 13 weeks gestation of pregnancy; Z87.891 Personal history of nicotine dependence; Z88.1 Allergy status to other antibiotic agents
CPT/HCPCS: 76817; 81003; 81025; 99282

== ENCOUNTER 2020-07-09 08:25 | Emergency (ER) | payer OTHER ==
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
--- NOTE | 2020-07-09 08:59 | EDPHYS ---
Physician Documentation [facility] Name: Estelle Luque Age: 30 yrs Sex: Female : 1990 Arrival Date: 07/09/2020 Time: 08:26 Bed 19 Private MD: PANCHO Physician Edilson Craig HPI: 07/09 08:54 This 30 yrs old Female presents to ER via Ambulatory with complaints of Sore michael Throat. 08:54 The patient presents with sore throat. The patient describes throat pain as burning, michael constant. Onset: The symptoms/episode began/occurred 2 day(s) ago. Severity of symptoms: At their worst the symptoms were. Modifying factors: The symptoms are alleviated by nothing, the symptoms are aggravated by fluids, foods, swallowing. Associated signs and symptoms: The patient has no apparent associated signs or symptoms. 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 - Social history:: Smoking status: Reported history of juuling and/or vaping. - Family history:: not pertinent. ROS: 08:54 Constitutional: Negative for fever, chills, and weight loss, Eyes: Negative for injury, michael pain, redness, and discharge, Neck: Negative for injury, pain, and swelling, Cardiovascular: Negative for chest pain, palpitations, and edema, Respiratory: Negative for shortness of breath, cough, wheezing, and pleuritic chest pain, Abdomen/GI: Negative for abdominal pain, nausea, vomiting, diarrhea, and constipation, Back: Negative for injury and pain, : Negative for injury, bleeding, discharge, and swelling, MS/Extremity: Negative for injury and deformity, Skin: Negative for injury, rash, and discoloration, Psych: Negative for depression, anxiety, suicide ideation, homicidal ideation, and hallucinations, Allergy/Immunology: Negative for hives, rash, and allergies, Endocrine: Negative for neck swelling, polydipsia, polyuria, polyphagia, and marked weight changes, Hematologic/Lymphatic: Negative for swollen nodes, abnormal bleeding, and unusual bruising. 08:54 ENT: Positive for sore throat. Exam: 08:54 Constitutional: This is a well developed, well nourished patient who is awake, alert, michael and in no acute distress. Head/Face: Normocephalic, atraumatic. Eyes: Pupils equal round and reactive to light, extra-ocular motions intact. Lids and lashes normal. Conjunctiva and sclera are non-icteric and not injected. Cornea within normal limits. Periorbital areas with no swelling, redness, or edema. Neck: Trachea midline, no thyromegaly or masses palpated, and no cervical lymphadenopathy. Supple, full range of motion without nuchal rigidity, or vertebral point tenderness. No Meningismus. Chest/axilla: Normal chest wall appearance and motion. Nontender with no deformity. No lesions are appreciated. Cardiovascular: Regular rate and rhythm with a normal S1 and S2. No gallops, murmurs, or rubs. Normal PMI, no JVD. No pulse deficits. Respiratory: Lungs have equal breath sounds bilaterally, clear to auscultation and percussion. No rales, rhonchi or wheezes noted. No increased work of breathing, no retractions or nasal flaring. Abdomen/GI: Soft, non-tender, with normal bowel sounds. No distension or tympany. No guarding or rebound. No evidence of tenderness throughout. Back: No spinal tenderness. No costovertebral tenderness. Full range of motion. Skin: Warm, dry with normal turgor. Normal color with no rashes, no lesions, and no evidence of cellulitis. MS/ Extremity: Pulses equal, no cyanosis. Neurovascular intact. Full, normal range of motion. Neuro: Awake and alert, GCS 15, oriented to person, place, time, and situation. Cranial nerves II-XII grossly intact. Motor strength 5/5 in all extremities. Sensory grossly intact. Cerebellar exam normal. Normal gait. Psych: Awake, alert, with orientation to person, place and time. Behavior, mood, and affect are within normal limits. 08:54 ENT: TM's: dullness, on the left, Mouth: Oral mucosa: normal, Gums: normal with healthy appearance, Tongue: is normal, abscess, is not appreciated, Posterior pharynx: Airway: normal, no evidence of obstruction, Tonsils: bilaterally enlarged, with erythema, Uvula: midline, edematous, erythema, swelling, that is mild, erythema, that is mild, exudate, is not appreciated, peritonsillar mass, is not appreciated, pooling of secretions, is not appreciated. Vital Signs: 08:32 BP 121 / 75; Pulse 124; Resp 17 S; Temp 97.3(TE); Pulse Ox 99% on R/A; Weight 95.25 kg jd3 (R); Height 5 ft. 4 in. (162.56 cm) (R); Pain 4/10; 09:02 BP 102 / 78; Pulse 117; Resp 17; Temp 98.9; ll1 09:40 BP 114 / 75; Pulse 100; Resp 17; Pulse Ox 99% on R/A; ll1 08:32 Body Mass Index 36.05 (95.25 kg, 162.56 cm) jd3 MDM: 08:36 Patient medically screened. [facility] 08:56 Differential diagnosis: cocksackie virus, influenza, laryngitis, peritonsillar abscess [facility] chlamydia pharyngitis, neisseria gonorrheoeae pharangitis, pharyngitis, tonsillitis, upper respiratory infection, uvulitis, viral syndrome. Data reviewed: vital signs, nurses notes, lab test result(s). Data interpreted: child monitor: not applicable for this patient encounter. rate is 124 beats/min, rhythm is regular, Pulse oximetry: on room air. Test interpretation: by ED physician or midlevel provider:. Counseling: I had a detailed discussion with the patient and/or guardian regarding: the historical points, exam findings, and any diagnostic results supporting the discharge/admit diagnosis, lab results, the need for outpatient follow up, for definitive care, a family practitioner. 07/09 08:31 Order name: Strep; Complete Time: 09:25 [facility] 07/09 09:12 Order name: Throat Culture EDRI 07/09 08:53 Order name: PO challenge; Complete Time: 08:55 [facility] Administered Medications: 09:02 Drug: Zithromax (azithromycin) 500 mg Route: PO; ll1 09:44 Follow up: Response: No adverse reaction ll1 09:02 Drug: predniSONE 40 mg Route: PO; ll1 09:43 Follow up: Response: No adverse reaction; RASS: Alert and Calm (0) ll1 09:02 Drug: Motrin (ibuprofen) 600 mg Route: PO; ll1 09:43 Follow up: Response: No adverse reaction; RASS: Alert and Calm (0) ll1 Disposition: 07/09/20 08:58 Discharged to Home. Impression: Acute pharyngitis, Acute tonsillitis. - Condition is Stable. - Discharge Instructions: Pharyngitis, Tonsillitis, Tonsillitis, [id number]-qr-Uchy, Pharyngitis, Pymv-iq-Slkx, Sore Throat, Ppxs-vj-Oiuy. - Prescriptions for Bernice- D 12 Hour 60-120 mg Oral Tablet Sustained Release 12 hr - take 1 tablet by ORAL route every 12 hours As needed; 20 tablet. Medrol ([place]) 4 mg Oral Tablets, Dose Pack - take 1 tablet by ORAL route as directed - follow package instructions; 1 packet. Zithromax 500 mg Oral Tablet - take 1 tablet by ORAL route once daily for 4 days; 4 tablet. - Medication Reconciliation Form, Thank You Letter, Antibiotic Education, Prescription Opioid Use, Work release form form. - Follow up: Private Physician; When: 2 - 3 days; Reason: Recheck today's complaints, Continuance of care, Re-evaluation by your physician. - Problem is new. - Symptoms have improved. Signatures: Dispatcher [employer] EDEdilson Couch MD MD cha Davies, Jonathon, RN RN Cosme Uribe RN RN ll1 Corrections: (The following items were deleted from the chart) 09:38 08:58 07/09/2020 08:58 Discharged to Home. Impression: Acute pharyngitis; Acute ll1 tonsillitis. Condition is Stable. Forms are Medication Reconciliation Form, Thank You Letter, Antibiotic Education, Prescription Opioid Use. Follow up: Private Physician; When: 2 - 3 days; Reason: Recheck today's complaints, Continuance of care, Re-evaluation by your physician. Problem is new. Symptoms have improved. michael
--- NOTE | 2020-07-09 08:59 | ER ---
Nurse's Notes [facility] Name: Estelle Luque Age: 30 yrs Sex: Female : 1990 Arrival Date: 07/09/2020 Time: 08:26 Bed 19 Private MD: Diagnosis: Acute pharyngitis;Acute tonsillitis Presentation: 07/09 08:30 Chief complaint: Patient states: "I think I have strep throat and an ear infection in jd3 my left ear. currently 36 weeks .". Coronavirus screen: At this time, the client does not indicate any symptoms associated with coronavirus-19. Ebola Screen: Patient negative for fever greater than or equal to 101.5 degrees Fahrenheit, and additional compatible Ebola Virus Disease symptoms. Initial Sepsis Screen: Does the patient meet any 2 criteria? No. Patient's initial sepsis screen is negative. Does the patient have a suspected source of infection? No. Patient's initial sepsis screen is negative. Risk Assessment: Do you want to hurt yourself or someone else? Patient reports no desire to harm self or others. Onset of symptoms was July 04, 2020. 08:30 Method Of Arrival: Ambulatory jd3 08:30 Acuity: SANDI 3 jd3 Triage Assessment: 09:35 General: Appears in no apparent distress. Behavior is calm, cooperative, appropriate ll1 for age. HAND ICER: 08:32 LMP N/A - currently jd3 Historical: - Allergies: 08:32 Ceclor; jd3 - Home Meds: 08:32 oral oral [Active]; jd3 - PMHx: 08:32 Anxiety; Depression; jd3 - PSHx: 08:32 Appendectomy; jd3 - Immunization history:: Adult Immunizations up to date. - Social history:: Smoking status: Reported history of juuling and/or vaping. - Family history:: not pertinent. Screenin:00 Abuse screen: Denies threats or abuse. Nutritional screening: No deficits noted. ll1 Tuberculosis screening: No symptoms or risk factors identified. Fall Risk None identified. Total Mcconnell Fall Scale indicates No Risk (0-24 pts). Assessment: 09:00 General: Appears in no apparent distress. Behavior is calm, cooperative, Smells of. ll1 Pain: Complains of pain in throat Quality of pain is described as aching. Neuro: No deficits noted. Cardiovascular: No deficits noted. Respiratory: Airway is patent Trachea midline Respiratory effort is even, unlabored, Breath sounds are clear bilaterally. EENT: Throat is reddened Reports nasal congestion pain when swallowing. Vital Signs: 08:32 BP 121 / 75; Pulse 124; Resp 17 S; Temp 97.3(TE); Pulse Ox 99% on R/A; Weight 95.25 kg jd3 (R); Height 5 ft. 4 in. (162.56 cm) (R); Pain 4/10; 09:02 BP 102 / 78; Pulse 117; Resp 17; Temp 98.9; ll1 09:40 BP 114 / 75; Pulse 100; Resp 17; Pulse Ox 99% on R/A; ll1 08:32 Body Mass Index 36.05 (95.25 kg, 162.56 cm) jd3 ED Course: 08:26 Patient arrived in ED. am2 08:30 Edilson Craig MD is Attending Physician. [facility] 08:31 Triage completed. jd3 08:33 Arm band placed on. jd3 08:37 Cosme Cody, RN is Primary Nurse. ll1 09:00 Patient has correct armband on for positive identification. Bed in low position. Call ll1 light in reach. Side rails up X 1. 09:35 No provider procedures requiring assistance completed. Patient did not have IV access ll1 during this emergency room visit. Administered Medications: 09:02 Drug: Zithromax (azithromycin) 500 mg Route: PO; ll1 09:44 Follow up: Response: No adverse reaction ll1 09:02 Drug: predniSONE 40 mg Route: PO; ll1 09:43 Follow up: Response: No adverse reaction; RASS: Alert and Calm (0) ll1 09:02 Drug: Motrin (ibuprofen) 600 mg Route: PO; ll1 09:43 Follow up: Response: No adverse reaction; RASS: Alert and Calm (0) ll1 Outcome: 08:58 Discharge ordered by . michael 09:38 Patient left the ED. ll1 09:38 Discharged to home ambulatory. ll1 09:38 Condition: stable 09:38 Discharge instructions given to patient, Instructed on discharge instructions, follow up and referral plans. medication usage, Demonstrated understanding of instructions, follow-up care, medications, Prescriptions given X 3. Signatures: Edilson Craig MD MD cha Moreno, Amanda am2 Guillermo Munoz RN RN jd3 Cosme Cody RN RN ll1 Corrections: (The following items were deleted from the chart) 08:32 08:30 Chief complaint: Patient states: "I think I have strep throat and an ear jd3 infection in my left ear." jd3
[2020-07-09] MEDS ORDERED: IBUPROFEN 200 MG TAB PO ONE (09:16)
[2020-07-09] MEDS ORDERED: predniSONE 20 MG TAB ONE (09:17)
[2020-07-09] MEDS ORDERED: IBUPROFEN 400 MG TAB ONE (09:17)
[2020-07-09] MEDS ORDERED: AZITHROMYCIN 250 MG TAB ONE (09:17)
[2020-07-09 09:48] VITALS: O2SAT 99
[2020-07-09 09:59] VITALS: BP 102/78; TEMP 98.9
== END 2020-07-09 09:38 | disposition home or self-care (01) ==
LOC: ER 08:25
DX: O99.519 Diseases of the respiratory system complicating pregnancy, unspecified trimester (principal); J03.90 Acute tonsillitis, unspecified; Z3A.00 Weeks of gestation of pregnancy not specified; O99.330 Smoking (tobacco) complicating pregnancy, unspecified trimester; F17.290 Nicotine dependence, other tobacco product, uncomplicated; O99.340 Other mental disorders complicating pregnancy, unspecified trimester; F41.9 Anxiety disorder, unspecified; F32.9 Major depressive disorder, single episode, unspecified
CPT/HCPCS: 87070; 87081; 99283; J7512

== ENCOUNTER 2021-11-15 21:50 | Emergency (ER) | payer OTHER ==
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
[2021-11-15] MEDS ORDERED: HYDROCODONE/APAP 7.5/325 MG TAB ONE (22:15)
--- NOTE | 2021-11-15 22:51 | RAD REPORT ---
EXAM DESCRIPTION: RAD - Foot Left 3 View - 11/15/2021 10:40 pm CLINICAL HISTORY: Left Foot pain status post injury FINDINGS: No fracture or dislocation is seen. Large plantar calcaneal spur
--- NOTE | 2021-11-15 23:28 | ER ---
Nurse's Notes [facility] Name: Estelle Luque Age: 31 yrs Sex: Female : 1990 Arrival Date: 11/15/2021 Time: 21:56 Bed 12 Private MD: Diagnosis: Pain in left foot Presentation: 11/15 21:59 Chief complaint: Patient states: "My foot has been hurting for like 2 months and I as6 think I hurt it then but today I jumped down from a truck and I landed wrong and now there is this sharp shooting pain to my left foot". Coronavirus screen: At this time, the client does not indicate any symptoms associated with coronavirus-19. Ebola Screen: No symptoms or risks identified at this time. Initial Sepsis Screen: Does the patient meet any 2 criteria? No. Patient's initial sepsis screen is negative. Does the patient have a suspected source of infection? No. Patient's initial sepsis screen is negative. Risk Assessment: Do you want to hurt yourself or someone else? Patient reports no desire to harm self or others. Onset of symptoms was November 15, 2021. 21:59 Method Of Arrival: Ambulatory as6 21:59 Acuity: SANDI 4 as6 Triage Assessment: 22:04 General: Appears in no apparent distress. Behavior is calm, cooperative. Pain: as6 Complains of pain in left foot. Neuro: Level of Consciousness is awake, alert. Respiratory: Respiratory effort is even, unlabored. Historical: - Allergies: 22:03 Ceclor; as6 - PMHx: 22:03 Anxiety; Depression; as6 - PSHx: 22:03 Appendectomy; Ligation of fallopian tube; as6 - Immunization history:: Client reports receiving the 2nd dose of the Covid vaccine, pfizer. - Social history:: Smoking status: Reported history of juuling and/or vaping. Screenin:00 Abuse screen: Denies threats or abuse. Nutritional screening: No deficits noted. jj7 Tuberculosis screening: No symptoms or risk factors identified. Fall Risk None identified. Assessment: 22:30 Musculoskeletal: Reports pain in left foot. jj7 Vital Signs: 21:59 BP 148 / 82; Pulse 66; Resp 18 S; Temp 97.8(TE); Pulse Ox 100% on R/A; Weight 90.72 kg as6 (R); Height 5 ft. 4 in. (162.56 cm) (R); Pain 4/10; 23:00 BP 147 / 90; Pulse 70; Resp 20; Pulse Ox 99% ; jj7 11/16 00:15 BP 149 / 92; Pulse 64; Resp 18; Pulse Ox 100% ; Pain 2/10; jj7 11/15 21:59 Body Mass Index 34.33 (90.72 kg, 162.56 cm) as6 ED Course: 11/15 21:56 Patient arrived in ED. dt4 21:56 Prerna Smith FNP-C is PHCP. kb 21:56 Satish Rhodes DO is Attending Physician. kb 22:03 Triage completed. as6 22:04 Arm band placed on. as6 22:42 Foot Left 3 View XRAY In Process Unspecified. EDMS 23:00 Patient has correct armband on for positive identification. Bed in low position. Call jj7 light in reach. 23:00 No provider procedures requiring assistance completed. jj7 11/16 00:36 Patient did not have IV access during this emergency room visit. jj7 Administered Medications: 11/15 22:07 Drug: [place] (HYDROcodone-acetaminophen) (7.5 mg-325 mg) 1 tabs Route: PO; as6 Medication: 11/16 00:36 VIS not applicable for this client. jj7 Outcome: 11/15 23:27 Discharge ordered by . kb 11/16 00:36 Discharged to home ambulatory. jj7 Condition: improved Discharge instructions given to patient. 00:38 Patient left the ED. jj7 Signatures: Dispatcher [employer] EDCA Prerna Smith FNP-C FNP-Ckb Slawson, Ashby, RN RN as6 Kush Hoover RN RN jj7 Jina Le dt4 Corrections: (The following items were deleted from the chart) 00:38 00:15 BP 149 / 98; Pulse 64bpm; Resp 18bpm; Pulse Ox 100%; Pain 2/10; jj7 jj7
--- NOTE | 2021-11-15 23:28 | EDPHYS ---
Physician Documentation [facility] Name: Estelle Luque Age: 31 yrs Sex: Female : 1990 Arrival Date: 11/15/2021 Time: 21:56 Bed 12 Private MD: ED Physician Satish Rhodes HPI: 11/15 23:35 This 31 yrs old Female presents to ER via Ambulatory with complaints of Foot kb Injury. 23:35 The patient presents with pain, tenderness. The complaints affect the left foot. kb Context: The problem was sustained at home, resulted from an unknown cause, the patient can fully bear weight, the patient is able to ambulate. Onset: The symptoms/episode began/occurred 2 month(s) ago. Modifying factors: The symptoms are alleviated by nothing, the symptoms are aggravated by weight bearing, movement. Associated signs and symptoms: The patient has no apparent associated signs or symptoms. Severity of symptoms: At their worst the symptoms were moderate, in the emergency department the symptoms are unchanged. The patient has not experienced similar symptoms in the past. The patient has not recently seen a physician. Pt reports left foot pain that started 2 months ago. Today she jumped down onto foot and the pain became more severe. Historical: - Allergies: 22:03 Ceclor; as6 - PMHx: 22:03 Anxiety; Depression; as6 - PSHx: 22:03 Appendectomy; Ligation of fallopian tube; as6 - Immunization history:: Client reports receiving the 2nd dose of the Covid vaccine, pfizer. - Social history:: Smoking status: Reported history of juuling and/or vaping. ROS: 23:34 Constitutional: Negative for fever, chills, and weight loss. kb 23:34 MS/extremity: Positive for pain, tenderness, of the left foot. 23:34 All other systems are negative. Exam: 23:34 Constitutional: This is a well developed, well nourished patient who is awake, alert, kb and in no acute distress. Head/Face: Normocephalic, atraumatic. ENT: Moist Mucous membranes Cardiovascular: Regular rate and rhythm with a normal S1 and S2. No gallops, murmurs, or rubs. No pulse deficits. Respiratory: Respirations even and unlabored. No increased work of breathing. Talking in full sentences Skin: Warm, dry with normal turgor. Normal color. Neuro: Awake and alert, GCS 15, oriented to person, place, time, and situation. Moves all extremities. Normal gait. Psych: Awake, alert, with orientation to person, place and time. Behavior, mood, and affect are within normal limits. 23:34 Musculoskeletal/extremity: Extremities: grossly normal except: noted in the arch of left foot: pain, tenderness, ROM: intact in all extremities, Circulation is intact in all extremities. Sensation intact. Weight bearing: able to fully bear weight. Vital Signs: 21:59 BP 148 / 82; Pulse 66; Resp 18 S; Temp 97.8(TE); Pulse Ox 100% on R/A; Weight 90.72 kg as6 (R); Height 5 ft. 4 in. (162.56 cm) (R); Pain 4/10; 23:00 BP 147 / 90; Pulse 70; Resp 20; Pulse Ox 99% ; jj7 11/16 00:15 BP 149 / 92; Pulse 64; Resp 18; Pulse Ox 100% ; Pain 2/10; jj7 11/15 21:59 Body Mass Index 34.33 (90.72 kg, 162.56 cm) as6 MDM: 11/15 21:56 Patient medically screened. kb 23:35 Data reviewed: vital signs, nurses notes. Data interpreted: Pulse oximetry: on room air kb is 100 %. Interpretation: normal. Counseling: I had a detailed discussion with the patient and/or guardian regarding: the historical points, exam findings, and any diagnostic results supporting the discharge/admit diagnosis, radiology results, the need for outpatient follow up, a orthopedic surgeon, a prune washer, to return to the emergency department if symptoms worsen or persist or if there are any questions or concerns that arise at home. 11/15 21:59 Order name: Foot Left 3 View XRAY; Complete Time: 22:57 kb Administered Medications: 22:07 Drug: [place] (HYDROcodone-acetaminophen) (7.5 mg-325 mg) 1 tabs Route: PO; as6 Disposition: 11/16 08:34 Co-signature as Attending Physician, Satish Rhodes DO I was immediately available on-site ms3 in the Emergency Department for consultation in the care of the patient.. Disposition Summary: 11/15/21 23:27 Discharge Ordered Location: Home kb Condition: Stable kb Diagnosis - Pain in left foot kb Followup: kb - With: Emergency Department - When: As needed - Reason: Worsening of condition Followup: kb - With: Private Physician - When: 2 - 3 days - Reason: Recheck today's complaints, Continuance of care, Re-evaluation by your physician Discharge Instructions: - Discharge Summary Sheet kb - Foot Pain kb Forms: - Medication Reconciliation Form kb - Thank You Letter kb - Antibiotic Education kb - Prescription Opioid Use kb Prescriptions: - Diclofenac Sodium 75 mg Oral tablet,delayed release (DR/EC) - take 1 tablet by ORAL route 2 times per day As needed; 30 tablet; Refills: 0, kb Product Selection Permitted Signatures: Dispatcher [employer] EDMS Prerna Smith, TAMIR-C NURSE INFORMATICIST-Satish Adamson DO DO ms3 Dante Dias, RN RN as6
[2021-11-17 09:29] VITALS: BP 147/90; O2SAT 99
== END 2021-11-16 00:38 | disposition home or self-care (01) ==
LOC: ER 21:50
DX: M79.672 Pain in left foot (principal); Z88.8 Allergy status to other drugs, medicaments and biological substances
CPT/HCPCS: 99283